=== PATIENT | male | born 1985 | race African-American/Black ===

== ENCOUNTER 2016-08-16 14:42 | Emergency (ER) | payer MEDICARE, MEDICAID ==
[~2016-08-16] VITALS: Ht 188 cm; Wt 115.0 kg
[~2016-08-16 14:42] MED LIST: EXEN2VIA SQ; INSLAN SQ; METF500T4 PO; RIVA10 PO
[2016-08-16] MEDS ORDERED: CACARB500 PO (14:46)
[2016-08-16 14:52] LABS: GLUCOSE,POINT OF CARE 93 MG/DL (70-110)
[2016-08-16] MEDS ORDERED: SODIUM CHLORIDE 0.9% 1,000 ML IV ONE (15:30)
[2016-08-16] MEDS ORDERED: ONDANSETRON HCL 4 MG/2 ML VIAL IVP ONE (15:30)
[2016-08-16 15:51] LABS: BASOPHILS # (AUTO) 0.04 K/uL (0.00-0.20); BASOPHILS % (AUTO) 0.8 % (0.0-2.0); EOSINOPHILS # (AUTO) 0.08 K/uL (0.00-0.70); EOSINOPHILS % (AUTO) 1.52 % (1.0-6.0); HEMATOCRIT 39.2 % (41-53); HEMOGLOBIN 12.8 g/dL (13.5-17.5); LYMPHOCYTES # (AUTO) 2.4 K/uL (1.0-4.8); LYMPHOCYTES % (AUTO) 45.1 % (22.0-44.0); MEAN CORPUSCULAR HEMOGLOBIN 26.3 pg (26.0-34.0); MEAN CORPUSCULAR HGB CONC 32.8 G/dL (31.0-37.0); MEAN CORPUSCULAR VOLUME 80 fL (80-100); MONOCYTES # (AUTO) 0.3 K/uL (0.1-1.0); MONOCYTES % (AUTO) 5.5 % (2.0-9.0); NEUTROPHILS # (AUTO) 2.5 K/uL (1.8-7.7); NEUTROPHILS % (AUTO) 47.1 % (40.0-70.0); PLATELET COUNT (AUTO) 216 K/uL (150-450); RED BLOOD CELL COUNT(AUTO) 4.88 MIL/uL (4.50-5.90); RED CELL DISTRIBUTION WIDTH 14.3 % (11.5-14.5); WHITE BLOOD COUNT (AUTO) 5.2 K/uL (4.5-11.0)
[2016-08-16 15:56] LABS: GLUCOSE,POINT OF CARE 79 MG/DL (70-110)
[2016-08-16 15:59] LABS: ANION GAP 8 mmol/L (8-16); CALCIUM, TOTAL 9.6 mg/dL (8.8-10.5); CARBON DIOXIDE 29 mmol/L (22-29); CHLORIDE 105 mmol/L (98-107); CREATININE 1.18 mg/dL (0.60-1.30); GLOMERULAR FILTR. RATE CALC > 60 mL/min (>60); POTASSIUM 3.6 mmol/L (3.5-5.1); SODIUM SERUM 142 mmol/L (136-145); UREA NITROGEN, BLOOD 12 mg/dL (7-18)
[2016-08-16 16:05] LABS: ALANINE AMINOTRANSFERASE 18 U/L (12-78); ALBUMIN 3.4 g/dL (3.4-5.0); ASPARTATE AMINOTRANSFERASE 11 U/L (15-37); BILIRUBIN,TOTAL 0.5 mg/dL (0.1-1.0); TOTAL PROTEIN, SERUM 7.3 g/dL (6.4-8.2)
[2016-08-16 17:06] LABS: GLUCOSE,POINT OF CARE 108 MG/DL (70-110)
[2016-08-16 17:23] VITALS: BP 132/80
== END 2016-08-16 17:48 | disposition home or self-care (01) ==
LOC: EMS 14:43
DX: S39.012A Strain of muscle, fascia and tendon of lower back, initial encounter (principal); S00.03XA Contusion of scalp, initial encounter; R55 Syncope and collapse; K29.70 Gastritis, unspecified, without bleeding; E11.9 Type 2 diabetes mellitus without complications; Z79.4 Long term (current) use of insulin; Z88.8 Allergy status to other drugs, medicaments and biological substances; V49.50XA Passenger injured in collision with unspecified motor vehicles in traffic accident, initial encounter; Y93.89 Activity, other specified; Y92.89 Other specified places as the place of occurrence of the external cause; Y99.8 Other external cause status
CPT/HCPCS: 36415; 70450; 71010; 72100; 80053; 82962; 83690; 84484; 85025; 93005; 96361; 96374; 99285; J2405; J7030

== ENCOUNTER → 2016-09-03 | Outpatient (CLI) | payer MEDICARE, MEDICAID ==
[~2016-09-03] VITALS: Ht 188 cm; Wt 117.5 kg
[~2016-09-03] MED LIST changes: +CACARB500 PO
[2016-09-03 10:11] VITALS: BP 119/88
[2016-09-03 15:27] LABS: GLUCOSE,POINT OF CARE 112 MG/DL (70-110)
== END | disposition home or self-care (01) ==
LOC: SRCNTR 10:09
PROVIDERS: ATTEND Hospitalist
DX: E11.65 Type 2 diabetes mellitus with hyperglycemia (principal); I10 Essential (primary) hypertension; L02.91 Cutaneous abscess, unspecified; I82.402 Acute embolism and thrombosis of unspecified deep veins of left lower extremity; R26.2 Difficulty in walking, not elsewhere classified; S91.301A Unspecified open wound, right foot, initial encounter; T24.202A Burn of second degree of unspecified site of left lower limb, except ankle and foot, initial encounter
CPT/HCPCS: 82962; G0463

== ENCOUNTER 2016-10-27 01:13 | Emergency (ER) | payer MEDICARE, MEDICAID ==
[~2016-10-27] VITALS: Ht 188 cm; Wt 115.9 kg
[2016-10-27 01:31] LABS: GLUCOSE COMMENT 1 Doctor Notified; GLUCOSE,POINT OF CARE 135 MG/DL (70-110)
[2016-10-27 03:47] LABS: GLUCOSE,POINT OF CARE 132 MG/DL (70-110)
[2016-10-27 05:04] VITALS: BP 162/83
== END 2016-10-27 05:06 | disposition home or self-care (01) ==
LOC: EMS 01:15
DX: J40 Bronchitis, not specified as acute or chronic (principal); E11.9 Type 2 diabetes mellitus without complications; Z79.4 Long term (current) use of insulin; Z88.8 Allergy status to other drugs, medicaments and biological substances
CPT/HCPCS: 82948; 82962; 99283

== ENCOUNTER 2016-10-29 03:16 | Emergency (ER) | payer MEDICARE, MEDICAID ==
[~2016-10-29] VITALS: Ht 188 cm; Wt 115.9 kg
[2016-10-29 03:18] VITALS: BP 133/100
[2016-10-29] MEDS ORDERED: DEXAMETHASONE SOD PHOS 4 MG/ML 5 ML VIAL IM ONE (04:30)
[2016-10-29] MEDS ORDERED: KETOROLAC TROMETHAMINE 60 MG/2 ML VIAL IM ONE (04:45)
== END 2016-10-29 05:40 | disposition home or self-care (01) ==
LOC: EMS 03:18
DX: J02.9 Acute pharyngitis, unspecified (principal); J40 Bronchitis, not specified as acute or chronic; E11.9 Type 2 diabetes mellitus without complications; Z86.718 Personal history of other venous thrombosis and embolism; Z79.01 Long term (current) use of anticoagulants; Z79.4 Long term (current) use of insulin; Z91.048 Other nonmedicinal substance allergy status
CPT/HCPCS: 96372; 99284; J1100; J1885

== ENCOUNTER → 2016-10-29 | Outpatient (CLI) | payer MEDICARE, MEDICAID ==
[~2016-10-29] VITALS: Ht 188 cm; Wt 117.0 kg
[2016-10-29 13:51] VITALS: BP_SYST 91
[2016-10-29 19:39] LABS: GLUCOSE,POINT OF CARE 177 MG/DL (70-110)
== END | disposition home or self-care (01) ==
LOC: SRCNTR 13:30
PROVIDERS: ATTEND Hospitalist
DX: E11.65 Type 2 diabetes mellitus with hyperglycemia (principal); I10 Essential (primary) hypertension; J02.9 Acute pharyngitis, unspecified; Z86.718 Personal history of other venous thrombosis and embolism
CPT/HCPCS: 82962; G0463

== ENCOUNTER → 2016-11-26 | Outpatient (CLI) | payer MEDICARE, MEDICAID ==
[~2016-11-26] VITALS: Ht 188 cm; Wt 122.4 kg
[2016-11-26 09:03] VITALS: BP 151/88
== END | disposition home or self-care (01) ==
LOC: SRCNTR 09:00
PROVIDERS: ATTEND Hospitalist
DX: Z01.818 Encounter for other preprocedural examination (principal); I10 Essential (primary) hypertension; E11.65 Type 2 diabetes mellitus with hyperglycemia; I35.0 Nonrheumatic aortic (valve) stenosis
CPT/HCPCS: 93005; G0463

== ENCOUNTER 2017-03-07 18:45 | Emergency (ER) | payer MEDICARE, MEDICAID ==
[~2017-03-07] VITALS: Ht 188 cm; Wt 118.2 kg
[2017-03-07 19:02] LABS: GLUCOSE,POINT OF CARE 251 MG/DL (70-110)
[2017-03-07] MEDS ORDERED: LIDOCAINE HCL/PF 1% 2 ML VIAL IM ONE (20:00)
[2017-03-07] MEDS ORDERED: BACITRACIN 0.9 GM PACKET OINTMENT TP ONE (20:00)
[2017-03-07] MEDS ORDERED: CefTRIAXone SODIUM 1 GM/VIAL IM ONE (20:00)
[2017-03-07 21:19] VITALS: BP 143/97
== END 2017-03-07 21:21 | disposition home or self-care (01) ==
LOC: EMS 18:46
DX: E11.621 Type 2 diabetes mellitus with foot ulcer (principal); L97.519 Non-pressure chronic ulcer of other part of right foot with unspecified severity; L97.529 Non-pressure chronic ulcer of other part of left foot with unspecified severity; L03.116 Cellulitis of left lower limb; L03.115 Cellulitis of right lower limb; L08.9 Local infection of the skin and subcutaneous tissue, unspecified; I10 Essential (primary) hypertension; F17.210 Nicotine dependence, cigarettes, uncomplicated; Z79.4 Long term (current) use of insulin; Z91.048 Other nonmedicinal substance allergy status
CPT/HCPCS: 82962; 96372; 99283; J0696; J3490

== ENCOUNTER → 2017-04-15 | Outpatient (CLI) | payer MEDICARE, MEDICAID ==
[~2017-04-15] VITALS: Ht 188 cm; Wt 128.0 kg
[~2017-04-15] MED LIST changes: +AMLO-511 PO; -CACARB500 PO; -RIVA10 PO; +RIVA20TA PO; +VANC1IV IV
[2017-04-15 12:38] VITALS: BP 145/89
[2017-04-15 15:40] LABS: GLUCOMETER DEV NAME(LOC) SHC; GLUCOSE,POINT OF CARE 174 MG/DL (70-110)
== END | disposition home or self-care (01) ==
LOC: SRCNTR 11:32
PROVIDERS: ATTEND Hospitalist
DX: E11.65 Type 2 diabetes mellitus with hyperglycemia (principal); E78.5 Hyperlipidemia, unspecified; E11.40 Type 2 diabetes mellitus with diabetic neuropathy, unspecified; I10 Essential (primary) hypertension; L02.215 Cutaneous abscess of perineum; L02.31 Cutaneous abscess of buttock; T24.202A Burn of second degree of unspecified site of left lower limb, except ankle and foot, initial encounter; Z79.01 Long term (current) use of anticoagulants; Z79.4 Long term (current) use of insulin; Z86.718 Personal history of other venous thrombosis and embolism; Z98.890 Other specified postprocedural states
CPT/HCPCS: 82962; G0463

== ENCOUNTER 2017-04-18 19:46 | Inpatient (IN) | payer MEDICARE, MEDICAID ==
[~2017-04-18] VITALS: Ht 188 cm; Wt 130.3 kg
[~2017-04-18 19:46] MED LIST changes: -AMLO-511 PO; -VANC1IV IV
[2017-04-18 20:33] LABS: GLUCOSE,POINT OF CARE 153 MG/DL (70-110)
[2017-04-18] MEDS ORDERED: HYDROmorphone 2 MG/ML SYRINGE IVP ONE (20:45)
[2017-04-18] MEDS ORDERED: 0.9% SODIUM CHLORIDE 10 ML SYRINGE IVP PRN (20:45)
[2017-04-18] MEDS ORDERED: ONDANSETRON HCL 4 MG/2 ML VIAL IVP ONE (20:45)
[2017-04-18 21:13] LABS: BASOPHILS # (AUTO) 0.02 K/uL (0.00-0.20); BASOPHILS % (AUTO) 0.2 % (0.0-2.0); EOSINOPHILS # (AUTO) 0.05 K/uL (0.00-0.70); EOSINOPHILS % (AUTO) 0.55 % (1.0-6.0); HEMOGLOBIN 11.2 g/dL (13.5-17.5); LYMPHOCYTES # (AUTO) 0.9 K/uL (1.0-4.8); LYMPHOCYTES % (AUTO) 9.8 % (22.0-44.0); MEAN CORPUSCULAR HEMOGLOBIN 27.7 pg (26.0-34.0); MEAN CORPUSCULAR VOLUME 82 fL (80-100); MONOCYTES # (AUTO) 0.7 K/uL (0.1-1.0); MONOCYTES % (AUTO) 7.7 % (2.0-9.0); NEUTROPHILS # (AUTO) 7.8 K/uL (1.8-7.7); NEUTROPHILS % (AUTO) 81.7 % (40.0-70.0); PLATELET COUNT (AUTO) 229 K/uL (150-450); RED BLOOD CELL COUNT(AUTO) 4.04 MIL/uL (4.50-5.90); RED CELL DISTRIBUTION WIDTH 12.9 % (11.5-14.5)
[2017-04-18] MEDS ORDERED: SODIUM CHLORIDE 0.9% 1,000 ML IV ONE (21:15)
[2017-04-18 21:25] LABS: CALCIUM, TOTAL 9.1 mg/dL (8.8-10.5); CREATININE 1.72 mg/dL (0.60-1.30); POTASSIUM 4.1 mmol/L (3.5-5.1)
[2017-04-18 21:27] LABS: INR 1.1 (0.9-1.1); PROTHROMBIN TIME 11.4 SEC (9.4-11.6)
[2017-04-18 21:32] LABS: BILIRUBIN,TOTAL 0.6 mg/dL (0.1-1.0); TOTAL PROTEIN, SERUM 8.1 g/dL (6.4-8.2)
[2017-04-18 21:40] LABS: LACTIC ACID 0.7 mmol/L (0.4-2.0)
[2017-04-18] MEDS ORDERED: BISACODYL 10 MG RECTAL RECTAL SUPPOSITORY PR PRN (22:15)
[2017-04-18] MEDS ORDERED: ZOLPIDEM TARTRATE 5 MG TABLET PO PRN (22:15)
[2017-04-18] MEDS ORDERED: DEXTROSE 50%-WATER 25 GM/50 ML SYRINGE IVP PRN (22:15)
[2017-04-18] MEDS ORDERED: ALBUTEROL SULFATE 2.5 MG/0.5 ML NEB SOLUTION NEB PRN (22:15)
[2017-04-18] MEDS ORDERED: OxyCODONE HCL/ACETAMINOPHEN 5-325 MG TABLET PO PRN (22:15)
[2017-04-18] MEDS ORDERED: VANCOMYCIN HCL 1 GM/D5% WATER 200 ML IV ONE (22:30)
[2017-04-18 23:25] VITALS: BP 133/66
[2017-04-18] MEDS ORDERED: SODIUM CHLORIDE 0.9% 500 ML IV ONE (23:34)
[2017-04-19] MEDS ORDERED: VANCOMYCIN HCL 1 GM/D5% WATER 200 ML IV ONE (00:30)
[2017-04-19] MEDS ORDERED: PNEUMOCOCCAL VACCINE POLYVALENT 0.5 ML VIAL [PPSV23] IM ONE (01:15)
[2017-04-19] MEDS ORDERED: INFLUENZA VIRUS VACCINE QVS 2017-18 (3YR+)/PF 60 MCG/0.5 ML SYRINGE IM ONE (01:15)
[2017-04-19 04:30] VITALS: BP 157/86
[2017-04-19] MEDS: INSULIN ASPART 100 UNITS/ML SQ PRN (05:40)
[2017-04-19] MEDS: MORPHINE SULFATE 2 MG/ML SYRINGE IVP PRN ×3 (05:40→16:25)
[2017-04-19] MEDS: SODIUM CHLORIDE 0.9% 1,000 ML IV SCH (05:49)
[2017-04-19 06:12] LABS: CALCIUM, TOTAL 8.3 mg/dL (8.8-10.5); CREATININE 1.64 mg/dL (0.60-1.30)
[2017-04-19 07:13] VITALS: BP 138/70
[2017-04-19] MEDS: PANTOPRAZOLE SODIUM 40 MG DR TABLET PO SCH (09:41)
[2017-04-19] MEDS: HEPARIN SODIUM,PORCINE 5,000 UNITS/ML VIAL SQ SCH ×2 (09:41→19:52)
[2017-04-19] MEDS: DOCUSATE SODIUM 100 MG CAPSULE PO SCH ×2 (09:41→20:00)
[2017-04-19] MEDS: VANCOMYCIN HCL 1.5 GM in DEXTROSE 5%-WATER 250 ML IV SCH ×2 (10:34→19:52)
[2017-04-19 11:15] VITALS: BP 161/96
[2017-04-19 12:48] LABS: GLUCOMETER DEV NAME(LOC) 6N 2D; GLUCOSE,POINT OF CARE 131 MG/DL (70-110)
[2017-04-19 15:56] VITALS: BP 158/81
[2017-04-19 18:18] LABS: GLUCOMETER DEV NAME(LOC) 6N 2D; GLUCOSE,POINT OF CARE 119 MG/DL (70-110)
[2017-04-19 19:39] VITALS: BP 151/73
[2017-04-19] MEDS: ACETAMINOPHEN 325 MG TABLET PO PRN (20:00)
[2017-04-19 20:03] LABS: GLUCOMETER DEV NAME(LOC) 5N 2R; GLUCOSE,POINT OF CARE 141 MG/DL (70-110)
[2017-04-19 23:26] VITALS: BP 152/76
[2017-04-20 00:22] LABS: GLUCOMETER DEV NAME(LOC) 6N 2D; GLUCOSE,POINT OF CARE 128 MG/DL (70-110)
[2017-04-20] MEDS: SODIUM CHLORIDE 0.9% 1,000 ML IV SCH ×3 (00:55→17:24)
[2017-04-20] MEDS: MORPHINE SULFATE 2 MG/ML SYRINGE IVP PRN ×3 (01:13→17:24)
[2017-04-20 04:55] VITALS: BP 149/93
[2017-04-20 05:27] LABS: ANION GAP 7 mmol/L (8-16); CALCIUM, TOTAL 8.2 mg/dL (8.8-10.5); CARBON DIOXIDE 26 mmol/L (22-29); CHLORIDE 105 mmol/L (98-107); CREATININE 1.49 mg/dL (0.60-1.30); GLOMERULAR FILTR. RATE CALC > 60 mL/min (>60); GLUCOSE,RANDOM 113 mg/dL (70-110); POTASSIUM 3.9 mmol/L (3.5-5.1); SODIUM SERUM 138 mmol/L (136-145); UREA NITROGEN, BLOOD 14 mg/dL (7-18)
[2017-04-20 05:57] LABS: GLUCOMETER DEV NAME(LOC) 6N 2D; GLUCOSE,POINT OF CARE 112 MG/DL (70-110)
[2017-04-20 07:04] VITALS: BP 140/82
[2017-04-20] MEDS: VANCOMYCIN HCL 1.5 GM in DEXTROSE 5%-WATER 250 ML IV SCH ×2 (07:48→21:30)
[2017-04-20] MEDS: HEPARIN SODIUM,PORCINE 5,000 UNITS/ML VIAL SQ SCH (07:49)
[2017-04-20] MEDS: PANTOPRAZOLE SODIUM 40 MG DR TABLET PO SCH (07:49)
[2017-04-20] MEDS: DOCUSATE SODIUM 100 MG CAPSULE PO SCH ×2 (07:49→21:32)
[2017-04-20 11:07] LABS: GLUCOMETER DEV NAME(LOC) 6N 2D; GLUCOSE,POINT OF CARE 129 MG/DL (70-110)
[2017-04-20] MEDS: MULTIVITAMINS WITH MINERALS, THERAPEUTIC TABLET PO SCH (11:16)
[2017-04-20 11:28] VITALS: BP 153/82
[2017-04-20] MEDS ORDERED: ONDANSETRON HCL 4 MG/2 ML VIAL IVP ONE (12:00)
[2017-04-20] MEDS ORDERED: PROPOFOL 1% 20 ML VIAL IVP ONE (12:00)
[2017-04-20 16:17] VITALS: BP 155/80
[2017-04-20 18:02] LABS: GLUCOMETER DEV NAME(LOC) PVLAB130; GLUCOSE,POINT OF CARE 96 MG/DL (70-110)
[2017-04-20] MEDS: ACETAMINOPHEN 325 MG TABLET PO PRN (18:40)
[2017-04-20 20:18] VITALS: BP 148/76
[2017-04-20 23:10] VITALS: BP 151/85
[2017-04-21 00:03] LABS: GLUCOMETER DEV NAME(LOC) 6N 2D; GLUCOSE,POINT OF CARE 116 MG/DL (70-110)
[2017-04-21] MEDS: SODIUM CHLORIDE 0.9% 1,000 ML IV SCH ×2 (03:35→17:42)
[2017-04-21 05:56] VITALS: BP 142/78
[2017-04-21 06:08] LABS: BASOPHILS % (AUTO) 0.4 % (0.0-2.0); EOSINOPHILS % (AUTO) 2.3 % (1.0-6.0); HEMATOCRIT 30.6 % (41-53); HEMOGLOBIN 10.2 g/dL (13.5-17.5); LYMPHOCYTES # (AUTO) 0.9 K/uL (1.0-4.8); LYMPHOCYTES % (AUTO) 13.5 % (22.0-44.0); MEAN CORPUSCULAR HEMOGLOBIN 27.3 pg (26.0-34.0); MEAN CORPUSCULAR HGB CONC 33.3 G/dL (31.0-37.0); MEAN CORPUSCULAR VOLUME 82 fL (80-100); MONOCYTES # (AUTO) 0.7 K/uL (0.1-1.0); MONOCYTES % (AUTO) 9.7 % (2.0-9.0); NEUTROPHILS # (AUTO) 5.2 K/uL (1.8-7.7); NEUTROPHILS % (AUTO) 74.1 % (40.0-70.0); PLATELET COUNT (AUTO) 234 K/uL (150-450); RED BLOOD CELL COUNT(AUTO) 3.73 MIL/uL (4.50-5.90); RED CELL DISTRIBUTION WIDTH 12.4 % (11.5-14.5)
[2017-04-21] MEDS ORDERED: RINGERS SOLUTION,LACTATED 1,000 ML IV ONE ×2 (06:30→06:32)
[2017-04-21] MEDS ORDERED: SODIUM CHLORIDE 0.9% 10 ML ONE (06:52)
[2017-04-21] MEDS ORDERED: LIDOCAINE HCL/PF 1% 30 ML VIAL ONE (06:52)
[2017-04-21] MEDS ORDERED: BACITRACIN 50,000 UNITS/VIAL ONE (06:52)
[2017-04-21] MEDS ORDERED: BUPIVACAINE HCL/PF 0.5% 30 ML VIAL ONE (06:52)
[2017-04-21 06:53] LABS: GLUCOMETER DEV NAME(LOC) 6N 2D; GLUCOSE,POINT OF CARE 127 MG/DL (70-110)
[2017-04-21] MEDS ORDERED: SODIUM CL IRRIG SOLN BAG 3,000 ML IRRIG ONE (07:33)
[2017-04-21] MEDS ORDERED: GELATIN SPONGE,ABSORBABLE 100 MM TP ONE (08:02)
[2017-04-21] MEDS ORDERED: HYDROmorphone 2 MG/ML SYRINGE IVP PRN (08:15)
[2017-04-21] MEDS ORDERED: FentaNYL CITRATE-PF 100 MCG/2 ML VIAL IVP PRN (08:15)
[2017-04-21] MEDS ORDERED: MEPERIDINE-PF 25 MG/ML SYRINGE IVP PRN (08:15)
[2017-04-21] MEDS ORDERED: NEOMYCIN/BACITRACIN/POLYMYXIN B OINTMENT PACKET TP ONE (08:28)
[2017-04-21 08:53] LABS: CALCIUM, TOTAL 8.2 mg/dL (8.8-10.5); CARBON DIOXIDE 29 mmol/L (22-29); CREATININE 1.58 mg/dL (0.60-1.30); GLOMERULAR FILTR. RATE CALC > 60 mL/min (>60); GLUCOSE,RANDOM 110 mg/dL (70-110); UREA NITROGEN, BLOOD 13 mg/dL (7-18); VANCOMYCIN,RANDOM 21.9 mcg/mL (25.0-50.0)
[2017-04-21 08:59] LABS: ANION GAP 5 mmol/L (8-16); CHLORIDE 104 mmol/L (98-107); POTASSIUM 3.8 mmol/L (3.5-5.1); SODIUM SERUM 138 mmol/L (136-145)
[2017-04-21] MEDS: DOCUSATE SODIUM 100 MG CAPSULE PO SCH ×2 (09:00→20:57)
[2017-04-21] MEDS: PANTOPRAZOLE SODIUM 40 MG DR TABLET PO SCH (09:00)
[2017-04-21] MEDS: MULTIVITAMINS WITH MINERALS, THERAPEUTIC TABLET PO SCH (09:00)
[2017-04-21 09:47] VITALS: BP 163/88
[2017-04-21] MEDS: VANCOMYCIN HCL 1.5 GM in DEXTROSE 5%-WATER 250 ML IV SCH ×2 (10:08→20:01)
[2017-04-21] MEDS ORDERED: PANTOPRAZOLE SODIUM 40 MG DR TABLET PO ONE (10:45)
[2017-04-21 11:58] VITALS: BP 151/99
[2017-04-21 11:58] LABS: GLUCOMETER DEV NAME(LOC) PVLAB130; GLUCOSE,POINT OF CARE 118 MG/DL (70-110)
[2017-04-21] MEDS ORDERED: KETAMINE HCL 50 MG/ML 10 ML VIAL IVP ONE (12:00)
[2017-04-21] MEDS ORDERED: MIDAZOLAM HCL 2 MG/2 ML VIAL IVP ONE (12:00)
[2017-04-21] MEDS ORDERED: FentaNYL CITRATE-PF 100 MCG/2 ML VIAL IVP ONE (12:00)
[2017-04-21 16:20] VITALS: BP 138/82
[2017-04-21] MEDS ORDERED: OXYGEN THERAPY IH SCH (20:00)
[2017-04-21 20:01] VITALS: BP 154/96
[2017-04-21] MEDS ORDERED: 0.9% SODIUM CHLORIDE 10 ML SYRINGE IVP PRN (20:15)
[2017-04-21] MEDS: INSULIN ASPART 100 UNITS/ML SQ PRN (20:59)
[2017-04-21 21:27] LABS: GLUCOMETER DEV NAME(LOC) PVLAB130; GLUCOSE,POINT OF CARE 141 MG/DL (70-110)
[2017-04-21 23:38] VITALS: BP 150/80
[2017-04-22 01:33] LABS: GLUCOMETER DEV NAME(LOC) 6N 2D; GLUCOSE,POINT OF CARE 103 MG/DL (70-110)
[2017-04-22 05:47] VITALS: BP 144/71
[2017-04-22 06:18] LABS: GLUCOMETER DEV NAME(LOC) PVLAB130; GLUCOSE,POINT OF CARE 126 MG/DL (70-110)
[2017-04-22 06:28] LABS: CALCIUM, TOTAL 8.3 mg/dL (8.8-10.5); CREATININE 1.76 mg/dL (0.60-1.30); POTASSIUM 4.1 mmol/L (3.5-5.1)
[2017-04-22] MEDS: DOCUSATE SODIUM 100 MG CAPSULE PO SCH ×2 (08:13→19:59)
[2017-04-22] MEDS: PANTOPRAZOLE SODIUM 40 MG DR TABLET PO SCH (08:14)
[2017-04-22] MEDS: VANCOMYCIN HCL 1.5 GM in DEXTROSE 5%-WATER 250 ML IV SCH ×2 (09:21→19:58)
[2017-04-22] MEDS: MULTIVITAMINS WITH MINERALS, THERAPEUTIC TABLET PO SCH (09:21)
[2017-04-22 11:12] VITALS: BP 143/77
[2017-04-22] MEDS: PIPERACILLIN/TAZO 3.375 GM/D5W 50 ML IV SCH ×3 (12:10→23:41)
[2017-04-22 12:13] LABS: GLUCOMETER DEV NAME(LOC) PVLAB130; GLUCOSE,POINT OF CARE 119 MG/DL (70-110)
[2017-04-22 19:33] VITALS: BP 159/78
[2017-04-22 22:35] LABS: GLUCOMETER DEV NAME(LOC) PVLAB130; GLUCOSE,POINT OF CARE 126 MG/DL (70-110)
[2017-04-22 22:35] LABS: GLUCOMETER DEV NAME(LOC) PVLAB130; GLUCOSE,POINT OF CARE 113 MG/DL (70-110)
[2017-04-23] MEDS: MORPHINE SULFATE 2 MG/ML SYRINGE IVP PRN (02:03)
[2017-04-23] MEDS: PIPERACILLIN/TAZO 3.375 GM/D5W 50 ML IV SCH ×4 (06:19→23:59)
[2017-04-23] MEDS: ONDANSETRON HCL 4 MG/2 ML VIAL IVP PRN (06:23)
[2017-04-23 06:51] LABS: GLUCOMETER DEV NAME(LOC) 6N 2D; GLUCOSE,POINT OF CARE 102 MG/DL (70-110)
[2017-04-23 07:08] LABS: CALCIUM, TOTAL 8.2 mg/dL (8.8-10.5); CREATININE 2.19 mg/dL (0.60-1.30); POTASSIUM 3.9 mmol/L (3.5-5.1); VANCOMYCIN,RANDOM 24.8 mcg/mL (25.0-50.0)
[2017-04-23] MEDS ORDERED: SODIUM CHLORIDE 0.9% 1,000 ML IV SCH (07:30)
[2017-04-23 07:35] VITALS: BP 156/101
[2017-04-23] MEDS: MULTIVITAMINS WITH MINERALS, THERAPEUTIC TABLET PO SCH (08:46)
[2017-04-23] MEDS: PANTOPRAZOLE SODIUM 40 MG DR TABLET PO SCH (08:46)
[2017-04-23] MEDS: DOCUSATE SODIUM 100 MG CAPSULE PO SCH ×2 (08:46→20:21)
[2017-04-23] MEDS: VANCOMYCIN HCL 1.5 GM in DEXTROSE 5%-WATER 250 ML IV SCH (08:49)
[2017-04-23] MEDS ORDERED: MEPERIDINE-PF 25 MG/ML SYRINGE IVP PRN (09:15)
[2017-04-23] MEDS ORDERED: OXYGEN THERAPY IH SCH (09:15)
[2017-04-23] MEDS ORDERED: FentaNYL CITRATE-PF 100 MCG/2 ML VIAL IVP PRN (09:15)
[2017-04-23] MEDS ORDERED: HYDROmorphone 2 MG/ML SYRINGE IVP PRN (09:15)
[2017-04-23] MEDS ORDERED: PROPOFOL 1000 MG/ISO-OSM 100 ML IV ONE (09:35)
[2017-04-23] MEDS ORDERED: SODIUM CHLORIDE 0.9% 1,000 ML IV ONE ×3 (10:15→11:40)
[2017-04-23] MEDS ORDERED: VANCOMYCIN HCL 500 MG/VIAL ONE (11:10)
[2017-04-23] MEDS ORDERED: LIDOCAINE HCL/PF 1% 30 ML VIAL ONE (11:10)
[2017-04-23] MEDS ORDERED: SODIUM CHLORIDE 0.9% 10 ML ONE (11:10)
[2017-04-23] MEDS ORDERED: BUPIVACAINE HCL/PF 0.5% 30 ML VIAL ONE (11:10)
[2017-04-23] MEDS ORDERED: LIDOCAINE HCL/PF 2% 5 ML VIAL INJ ONE (12:00)
[2017-04-23] MEDS ORDERED: METOCLOPRAMIDE HCL 5 MG/ML 2 ML VIAL IVP ONE (12:00)
[2017-04-23] MEDS ORDERED: PROPOFOL 1% 20 ML VIAL IVP ONE (12:00)
[2017-04-23] MEDS ORDERED: GLYCOPYRROLATE 0.2 MG/ML VIAL IM ONE (12:00)
[2017-04-23] MEDS ORDERED: ONDANSETRON HCL 4 MG/2 ML VIAL IVP ONE (12:00)
[2017-04-23] MEDS ORDERED: SUCCINYLCHOLINE CHLORIDE 20 MG/ML 10 ML VIAL IVP ONE (12:00)
[2017-04-23] MEDS ORDERED: MIDAZOLAM HCL 2 MG/2 ML VIAL IVP ONE (12:00)
[2017-04-23] MEDS ORDERED: KETAMINE HCL 50 MG/ML 10 ML VIAL IVP ONE (12:00)
[2017-04-23] MEDS ORDERED: PIPERACILLIN SODIUM/TAZOBACTAM 3.375 GM/VIAL TP ONE (12:30)
[2017-04-23] MEDS ORDERED: GELATIN SPONGE,ABSORBABLE 50 MM TP ONE ×2 (12:31→12:48)
[2017-04-23] MEDS ORDERED: THROMBIN, BOVINE 20000 UNITS/VIAL POWDER TP ONE (12:49)
[2017-04-23 14:10] VITALS: BP 150/93
[2017-04-23 16:43] VITALS: BP 150/96
[2017-04-23 18:38] LABS: GLUCOMETER DEV NAME(LOC) PVLAB130; GLUCOSE,POINT OF CARE 86 MG/DL (70-110)
[2017-04-23] MEDS: ACETAMINOPHEN 325 MG TABLET PO PRN (21:28)
[2017-04-23 21:39] VITALS: BP 162/93
[2017-04-23 22:48] LABS: GLUCOMETER DEV NAME(LOC) 6N 2D; GLUCOSE,POINT OF CARE 130 MG/DL (70-110)
[2017-04-23 23:01] VITALS: BP 147/66
[2017-04-23] MEDS: AmLODIPine BESYLATE 5 MG TABLET PO SCH (23:03)
[2017-04-24 00:59] LABS: APPEARANCE,URINE CLEAR (CLEAR); BILIRUBIN,URINE NEGATIVE (NEGATIVE); GLUCOSE, URINE (UA) NEGATIVE (NEGATIVE); KETONES,URINE NEGATIVE (NEGATIVE); LEUKOCYTE ESTERASE ,URINE NEGATIVE (NEGATIVE); NITRATE,URINE NEGATIVE (NEGATIVE); OCCULT BLOOD,URINE TRACE (NEGATIVE); PH,URINE 5.5 (5.0-8.0); PROTEIN,URINE SEE CONFIRM (NEGATIVE); UROBILINOGEN,URINE 0.2 mg/dL (<=1.0)
[2017-04-24 01:14] LABS: SULFOSALICYLIC ACID,URINE 2+ (Negative)
[2017-04-24 01:28] LABS: BACTERIA,URINE Few /HPF (None Seen); WBC,URINE 0-2 /HPF (0-5)
[2017-04-24 01:33] LABS: URIC ACID CRYSTALS,URINE Few /LPF (None Seen)
[2017-04-24 04:44] VITALS: BP 163/98
[2017-04-24] MEDS: PIPERACILLIN/TAZO 3.375 GM/D5W 50 ML IV SCH ×3 (05:55→18:43)
[2017-04-24] MEDS: MORPHINE SULFATE 2 MG/ML SYRINGE IVP PRN (06:09)
[2017-04-24 06:32] LABS: GLUCOMETER DEV NAME(LOC) PVLAB130; GLUCOSE,POINT OF CARE 138 MG/DL (70-110)
[2017-04-24 07:30] LABS: BASOPHILS % (AUTO) 0.5 % (0.0-2.0); EOSINOPHILS % (AUTO) 2.1 % (1.0-6.0); HEMATOCRIT 31.9 % (41-53); HEMOGLOBIN 10.5 g/dL (13.5-17.5); LYMPHOCYTES # (AUTO) 1.4 K/uL (1.0-4.8); MEAN CORPUSCULAR VOLUME 82 fL (80-100); MONOCYTES # (AUTO) 0.8 K/uL (0.1-1.0); MONOCYTES % (AUTO) 7.5 % (2.0-9.0); NEUTROPHILS # (AUTO) 8.1 K/uL (1.8-7.7); NEUTROPHILS % (AUTO) 76.9 % (40.0-70.0); PLATELET COUNT (AUTO) 316 K/uL (150-450); RED BLOOD CELL COUNT(AUTO) 3.88 MIL/uL (4.50-5.90); RED CELL DISTRIBUTION WIDTH 13.2 % (11.5-14.5)
[2017-04-24 07:34] VITALS: BP 150/94
[2017-04-24 07:50] LABS: CALCIUM, TOTAL 8.3 mg/dL (8.8-10.5); CREATININE 2.61 mg/dL (0.60-1.30); POTASSIUM 3.9 mmol/L (3.5-5.1); VANCOMYCIN,RANDOM 14.3 mcg/mL (25.0-50.0)
[2017-04-24] MEDS ORDERED: VANCOMYCIN HCL 1.5 GM in DEXTROSE 5%-WATER 250 ML IV SCH (08:00)
[2017-04-24] MEDS: DOCUSATE SODIUM 100 MG CAPSULE PO SCH ×2 (08:37→21:00)
[2017-04-24] MEDS: PANTOPRAZOLE SODIUM 40 MG DR TABLET PO SCH (08:37)
[2017-04-24] MEDS: AmLODIPine BESYLATE 5 MG TABLET PO SCH (08:37)
[2017-04-24] MEDS: MULTIVITAMINS WITH MINERALS, THERAPEUTIC TABLET PO SCH (08:37)
[2017-04-24] MEDS: INSULIN ASPART 100 UNITS/ML SQ PRN ×2 (11:11→18:46)
[2017-04-24 11:34] VITALS: BP 153/82
[2017-04-24] MEDS ORDERED: HEPARIN SODIUM 1000 UNITS/NS 500 ML ONE (16:20)
[2017-04-24 17:37] LABS: GLUCOMETER DEV NAME(LOC) PVLAB130; GLUCOSE,POINT OF CARE 142 MG/DL (70-110)
[2017-04-24 18:57] LABS: GLUCOMETER DEV NAME(LOC) 6N 2D; GLUCOSE,POINT OF CARE 105 MG/DL (70-110)
[2017-04-24 19:35] VITALS: BP 159/98
[2017-04-24 21:08] LABS: GLUCOMETER DEV NAME(LOC) 6N 2D; GLUCOSE,POINT OF CARE 105 MG/DL (70-110)
[2017-04-25 00:07] VITALS: BP 163/91
[2017-04-25] MEDS: PIPERACILLIN/TAZO 3.375 GM/D5W 50 ML IV SCH ×5 (00:07→23:53)
[2017-04-25 04:55] VITALS: BP 162/92
[2017-04-25 05:47] LABS: CALCIUM, TOTAL 8.4 mg/dL (8.8-10.5); CREATININE 2.46 mg/dL (0.60-1.30); POTASSIUM 3.8 mmol/L (3.5-5.1)
[2017-04-25 05:52] LABS: GLUCOMETER DEV NAME(LOC) 6N 2D; GLUCOSE,POINT OF CARE 140 MG/DL (70-110)
[2017-04-25 07:46] VITALS: BP 137/85
[2017-04-25] MEDS ORDERED: VANCOMYCIN HCL 1 GM/D5% WATER 200 ML IV ONE (08:00)
[2017-04-25] MEDS: DOCUSATE SODIUM 100 MG CAPSULE PO SCH ×2 (08:37→20:41)
[2017-04-25] MEDS: MULTIVITAMINS WITH MINERALS, THERAPEUTIC TABLET PO SCH (08:38)
[2017-04-25] MEDS: AmLODIPine BESYLATE 5 MG TABLET PO SCH (08:38)
[2017-04-25] MEDS: PANTOPRAZOLE SODIUM 40 MG DR TABLET PO SCH (08:38)
[2017-04-25] MEDS ORDERED: VANCOMYCIN HCL 1 GM/D5% WATER 200 ML IV PRN (09:00)
[2017-04-25] MEDS: INSULIN ASPART 100 UNITS/ML SQ PRN ×2 (11:19→17:20)
[2017-04-25 11:49] VITALS: BP 134/80
[2017-04-25 17:38] LABS: GLUCOMETER DEV NAME(LOC) PVLAB130; GLUCOSE,POINT OF CARE 114 MG/DL (70-110)
[2017-04-25 17:38] LABS: GLUCOMETER DEV NAME(LOC) PVLAB130; GLUCOSE,POINT OF CARE 127 MG/DL (70-110)
[2017-04-25 19:38] VITALS: BP 147/99
[2017-04-25 22:07] LABS: GLUCOMETER DEV NAME(LOC) 6N 2D; GLUCOSE,POINT OF CARE 97 MG/DL (70-110)
[2017-04-25 23:51] VITALS: BP 148/77
[2017-04-26 04:26] VITALS: BP 152/79
[2017-04-26] MEDS: PIPERACILLIN/TAZO 3.375 GM/D5W 50 ML IV SCH ×2 (06:01→12:03)
[2017-04-26 06:09] LABS: GLUCOMETER DEV NAME(LOC) PVLAB130; GLUCOSE,POINT OF CARE 119 MG/DL (70-110)
[2017-04-26 07:13] LABS: CALCIUM, TOTAL 8.2 mg/dL (8.8-10.5); CREATININE 2.38 mg/dL (0.60-1.30); POTASSIUM 3.8 mmol/L (3.5-5.1); VANCOMYCIN,RANDOM 12.3 mcg/mL (25.0-50.0)
[2017-04-26] MEDS: MULTIVITAMINS WITH MINERALS, THERAPEUTIC TABLET PO SCH ×2 (09:00→09:27)
[2017-04-26] MEDS: PANTOPRAZOLE SODIUM 40 MG DR TABLET PO SCH ×2 (09:00→09:27)
[2017-04-26] MEDS: DOCUSATE SODIUM 100 MG CAPSULE PO SCH ×2 (09:00→09:27)
[2017-04-26] MEDS: ONDANSETRON HCL 4 MG/2 ML VIAL IVP PRN (09:24)
[2017-04-26] MEDS: AmLODIPine BESYLATE 5 MG TABLET PO SCH (09:27)
[2017-04-26 09:35] VITALS: BP 146/93
[2017-04-26 11:15] VITALS: BP 160/77
[2017-04-26 11:42] LABS: GLUCOMETER DEV NAME(LOC) PVLAB130; GLUCOSE,POINT OF CARE 120 MG/DL (70-110)
[2017-04-26 15:59] VITALS: BP 181/100
[2017-04-26] MEDS ORDERED: VANCOMYCIN HCL 1 GM/D5% WATER 200 ML IV ONE (16:00)
[2017-04-26] MEDS ORDERED: VANC1IV IV (17:18)
[2017-04-26] MEDS ORDERED: AMLO-511 PO (17:24)
[2017-04-27] MEDS ORDERED: VANCOMYCIN HCL 1.25 GM in DEXTROSE 5%-WATER 250 ML IV SCH (08:00)
== END 2017-04-26 17:40 | disposition home or self-care (01) | DRG 853 ==
LOC: EMS 19:47 → 6N 22:25
PROVIDERS: ADMIT Internal Medicine; ATTEND Internal Medicine
PROC: 0Y6Y0Z1 Detachment at Left 5th Toe, High, Open Approach (ICD-10-PCS; principal; 2017-04-21 07:48)
PROC: 0QTP0ZZ Resection of Left Metatarsal, Open Approach (ICD-10-PCS; 2017-04-23)
PROC: 0Y6W0Z0 Detachment at Left 4th Toe, Complete, Open Approach (ICD-10-PCS; 2017-04-23)
PROC: 0Y9N0ZZ Drainage of Left Foot, Open Approach (ICD-10-PCS; 2017-04-23)
PROC: 02HV33Z Insertion of Infusion Device into Superior Vena Cava, Percutaneous Approach (ICD-10-PCS; 2017-04-24)
DX: A41.9 Sepsis, unspecified organism (principal); N17.0 Acute kidney failure with tubular necrosis; M86.8X7 Other osteomyelitis, ankle and foot; L02.612 Cutaneous abscess of left foot; E10.69 Type 1 diabetes mellitus with other specified complication; E10.22 Type 1 diabetes mellitus with diabetic chronic kidney disease; E66.01 Morbid (severe) obesity due to excess calories; E10.40 Type 1 diabetes mellitus with diabetic neuropathy, unspecified; E10.621 Type 1 diabetes mellitus with foot ulcer; E10.65 Type 1 diabetes mellitus with hyperglycemia; L97.519 Non-pressure chronic ulcer of other part of right foot with unspecified severity; F17.210 Nicotine dependence, cigarettes, uncomplicated; I12.9 Hypertensive chronic kidney disease with stage 1 through stage 4 chronic kidney disease, or unspecified chronic kidney disease; N18.9 Chronic kidney disease, unspecified; D64.9 Anemia, unspecified; B96.89 Other specified bacterial agents as the cause of diseases classified elsewhere; Z53.29 Procedure and treatment not carried out because of patient's decision for other reasons; Z28.21 Immunization not carried out because of patient refusal; Z91.048 Other nonmedicinal substance allergy status; Z71.6 Tobacco abuse counseling; Z86.718 Personal history of other venous thrombosis and embolism; Z91.19 Patient's noncompliance with other medical treatment and regimen; Z68.36 Body mass index [BMI] 36.0-36.9, adult
CPT/HCPCS: 36245; 36569; 73718; 76937; 82962; 83605; 84145; 85651; 87040; 87070; 87081; 87205; 88304; 88305; 88311; 93005; 93970; 96374; 96375; 99285; G0463; J0330; J0690; J1170; J1644; J2250; J2270; J2405; J2543; J2704; J2765; J3010; J3370; J3490; J7030; J7040; J7060; J7120

== ENCOUNTER → 2017-04-30 | Outpatient (CLI) | payer MEDICARE, MEDICAID ==
[~2017-04-30] MED LIST changes: +AMLO-511 PO; +VANC1IV IV
[2017-04-30 11:32] VITALS: BP 110/90
== END | disposition home or self-care (01) ==
LOC: SRCNTR 09:56
PROVIDERS: ATTEND Hospitalist
DX: E11.65 Type 2 diabetes mellitus with hyperglycemia (principal); I10 Essential (primary) hypertension; E78.5 Hyperlipidemia, unspecified; G89.4 Chronic pain syndrome
CPT/HCPCS: G0463

== ENCOUNTER → 2017-07-08 | Outpatient (CLI) | payer MEDICARE, MEDICAID ==
[2017-07-08 15:05] VITALS: BP 142/90
[2017-07-08 15:53] LABS: GLUCOMETER DEV NAME(LOC) SHC; GLUCOSE,POINT OF CARE 360 MG/DL (70-110)
== END | disposition home or self-care (01) ==
LOC: SRCNTR 15:03
PROVIDERS: ATTEND Hospitalist
DX: N17.0 Acute kidney failure with tubular necrosis (principal); I12.9 Hypertensive chronic kidney disease with stage 1 through stage 4 chronic kidney disease, or unspecified chronic kidney disease; E11.22 Type 2 diabetes mellitus with diabetic chronic kidney disease; N18.9 Chronic kidney disease, unspecified; M86.9 Osteomyelitis, unspecified; Z79.4 Long term (current) use of insulin; Z86.718 Personal history of other venous thrombosis and embolism
CPT/HCPCS: 82962 ×2; G0463

== ENCOUNTER → 2017-08-05 | Outpatient (CLI) | payer MEDICARE, MEDICAID ==
[2017-08-05 12:08] VITALS: BP 154/85
[2017-08-05 14:28] LABS: GLUCOMETER DEV NAME(LOC) SHC; GLUCOSE,POINT OF CARE 271 MG/DL (70-110)
== END | disposition home or self-care (01) ==
LOC: SRCNTR 11:54
PROVIDERS: ATTEND Hospitalist
DX: I12.9 Hypertensive chronic kidney disease with stage 1 through stage 4 chronic kidney disease, or unspecified chronic kidney disease (principal); N18.9 Chronic kidney disease, unspecified; E11.22 Type 2 diabetes mellitus with diabetic chronic kidney disease; R05 Cough; M86.9 Osteomyelitis, unspecified; E11.65 Type 2 diabetes mellitus with hyperglycemia
CPT/HCPCS: 82962 ×2; G0463

== ENCOUNTER → 2017-09-09 | Outpatient (CLI) | payer MEDICARE, MEDICAID ==
[2017-09-09 10:25] VITALS: BP 160/90
[2017-09-09 11:07] LABS: GLUCOMETER DEV NAME(LOC) SHC; GLUCOSE,POINT OF CARE 279 MG/DL (70-110)
== END | disposition home or self-care (01) ==
LOC: SRCNTR 10:02
PROVIDERS: ATTEND Hospitalist
DX: E11.65 Type 2 diabetes mellitus with hyperglycemia (principal); G89.4 Chronic pain syndrome; I82.409 Acute embolism and thrombosis of unspecified deep veins of unspecified lower extremity; I12.9 Hypertensive chronic kidney disease with stage 1 through stage 4 chronic kidney disease, or unspecified chronic kidney disease; E11.22 Type 2 diabetes mellitus with diabetic chronic kidney disease; N18.9 Chronic kidney disease, unspecified; M86.9 Osteomyelitis, unspecified
CPT/HCPCS: 82962; G0463

== ENCOUNTER → 2017-09-14 | Outpatient (CLI) | payer MEDICARE, MEDICAID ==
[~2017-09-14] MED LIST changes: -VANC1IV IV
== END | disposition home or self-care (01) ==
LOC: RADPV 11:13
PROVIDERS: ATTEND Podiatrist Foot & Ankle Surgery
DX: S91.105A Unspecified open wound of left lesser toe(s) without damage to nail, initial encounter (principal); E11.8 Type 2 diabetes mellitus with unspecified complications; X58.XXXA Exposure to other specified factors, initial encounter; Y93.89 Activity, other specified; Y92.89 Other specified places as the place of occurrence of the external cause; Y99.8 Other external cause status

== ENCOUNTER → 2017-10-04 | Outpatient (CLI) | payer MEDICARE, MEDICAID ==
[~2017-10-04] MED LIST changes: +MEDRONATE TC99M/UD<30 MCL ISOTOPE 1 EA INJ INJ ONE; +PERCT10 PO
== END | disposition home or self-care (01) ==
LOC: RADMN 08:46
PROVIDERS: ATTEND Podiatrist Foot & Ankle Surgery
DX: M86.172 Other acute osteomyelitis, left ankle and foot (principal)
CPT/HCPCS: 78315; A9503

== ENCOUNTER 2017-10-08 05:25 | Day surgery (SDC) | payer MEDICARE, MEDICAID ==
[~2017-10-08] VITALS: Ht 188 cm; Wt 125.0 kg
[~2017-10-08 05:25] MED LIST changes: -AMLO-511 PO; -MEDRONATE TC99M/UD<30 MCL ISOTOPE 1 EA INJ INJ ONE; +RINGERS SOLUTION,LACTATED 1,000 ML IV ONE; -RIVA20TA PO
[2017-10-08] MEDS ORDERED: RINGERS SOLUTION,LACTATED 1,000 ML IV ONE (06:00)
[2017-10-08 06:25] LABS: BASOPHILS % (AUTO) 0.9 % (0.0-2.0); EOSINOPHILS % (AUTO) 3.8 % (1.0-6.0); HEMATOCRIT 35.2 % (41-53); HEMOGLOBIN 11.7 g/dL (13.5-17.5); LYMPHOCYTES % (AUTO) 33.4 % (22.0-44.0); MEAN CORPUSCULAR HEMOGLOBIN 26.6 pg (26.0-34.0); MEAN CORPUSCULAR HGB CONC 33.2 G/dL (31.0-37.0); MEAN CORPUSCULAR VOLUME 80 fL (80-100); MONOCYTES # (AUTO) 0.4 K/uL (0.1-1.0); MONOCYTES % (AUTO) 6.8 % (2.0-9.0); NEUTROPHILS # (AUTO) 3.4 K/uL (1.8-7.7); NEUTROPHILS % (AUTO) 55.1 % (40.0-70.0); PLATELET COUNT (AUTO) 242 K/uL (150-450); RED BLOOD CELL COUNT(AUTO) 4.41 MIL/uL (4.50-5.90); RED CELL DISTRIBUTION WIDTH 13.8 % (11.5-14.5)
[2017-10-08 06:33] LABS: CALCIUM, TOTAL 8.7 mg/dL (8.8-10.5); CREATININE 2.02 mg/dL (0.60-1.30); POTASSIUM 4.6 mmol/L (3.5-5.1)
[2017-10-08] MEDS ORDERED: BUPIVACAINE HCL/PF 0.5% 30 ML VIAL ONE (06:36)
[2017-10-08] MEDS ORDERED: LIDOCAINE HCL/PF 1% 30 ML VIAL ONE (06:36)
[2017-10-08] MEDS ORDERED: BACITRACIN 50,000 UNITS/VIAL ONE (06:57)
[2017-10-08] MEDS ORDERED: SODIUM CHLORIDE 0.9% 10 ML ONE (06:57)
[2017-10-08] MEDS ORDERED: GELATIN SPONGE,ABSORBABLE 100 MM TP ONE (07:29)
[2017-10-08] MEDS ORDERED: MIDAZOLAM HCL 2 MG/2 ML VIAL IVP ONE (12:00)
[2017-10-08] MEDS ORDERED: LIDOCAINE HCL/PF 2% 5 ML VIAL INJ ONE (12:00)
[2017-10-08] MEDS ORDERED: FentaNYL CITRATE-PF 100 MCG/2 ML VIAL IVP ONE (12:00)
== END 2017-10-08 09:50 | disposition home or self-care (01) ==
LOC: SURGERY 05:25
PROVIDERS: ATTEND Podiatrist Foot & Ankle Surgery
DX: L97.524 Non-pressure chronic ulcer of other part of left foot with necrosis of bone (principal); E11.69 Type 2 diabetes mellitus with other specified complication; M86.8X7 Other osteomyelitis, ankle and foot; I10 Essential (primary) hypertension; E66.01 Morbid (severe) obesity due to excess calories; F12.90 Cannabis use, unspecified, uncomplicated; Z79.4 Long term (current) use of insulin; Z79.84 Long term (current) use of oral hypoglycemic drugs; Z91.048 Other nonmedicinal substance allergy status; Z98.890 Other specified postprocedural states; Z79.891 Long term (current) use of opiate analgesic; Z79.899 Other long term (current) drug therapy; Z72.89 Other problems related to lifestyle; Z68.35 Body mass index [BMI] 35.0-35.9, adult
CPT/HCPCS: 28825; 36415; 73630; 80048; 85025; 87070; 87077; 87186; 87205; 88305; 88311; J0690; J2250; J3010; J3490 ×4; J7120

== ENCOUNTER 2017-10-11 18:51 | Emergency (ER) | payer MEDICARE, MEDICAID ==
[~2017-10-11] VITALS: Ht 188 cm; Wt 122.7 kg
[~2017-10-11 18:51] MED LIST changes: -RINGERS SOLUTION,LACTATED 1,000 ML IV ONE
[2017-10-11 19:12] LABS: GLUCOSE,POINT OF CARE 189 MG/DL (70-110)
[2017-10-11] MEDS ORDERED: SODIUM CHLORIDE 0.9% 1,000 ML IV ONE ×2 (19:30→21:45)
[2017-10-11] MEDS ORDERED: KETOROLAC TROMETHAMINE 30 MG/ML VIAL IVP ONE (19:30)
[2017-10-11] MEDS ORDERED: ONDANSETRON HCL 4 MG/2 ML VIAL IVP ONE ×2 (19:30→21:45)
[2017-10-11 20:10] LABS: BASOPHILS % (AUTO) 0.2 % (0.0-2.0); EOSINOPHILS % (AUTO) 1.9 % (1.0-6.0); HEMATOCRIT 37.7 % (41-53); HEMOGLOBIN 12.6 g/dL (13.5-17.5); LYMPHOCYTES # (AUTO) 0.4 K/uL (1.0-4.8); LYMPHOCYTES % (AUTO) 5.2 % (22.0-44.0); MEAN CORPUSCULAR HEMOGLOBIN 26.5 pg (26.0-34.0); MEAN CORPUSCULAR HGB CONC 33.4 G/dL (31.0-37.0); MEAN CORPUSCULAR VOLUME 79 fL (80-100); MONOCYTES # (AUTO) 0.4 K/uL (0.1-1.0); MONOCYTES % (AUTO) 4.5 % (2.0-9.0); PLATELET COUNT (AUTO) 242 K/uL (150-450); RED BLOOD CELL COUNT(AUTO) 4.76 MIL/uL (4.50-5.90)
[2017-10-11 20:17] LABS: NEUTROPHILS % (AUTO) 88.2 % (40.0-70.0)
[2017-10-11 20:20] LABS: CALCIUM, TOTAL 9.6 mg/dL (8.8-10.5); CREATININE 2.11 mg/dL (0.60-1.30)
[2017-10-11 20:26] LABS: ALBUMIN 3.6 g/dL (3.4-5.0); BILIRUBIN,TOTAL 0.5 mg/dL (0.1-1.0); TOTAL PROTEIN, SERUM 8.3 g/dL (6.4-8.2)
[2017-10-11] MEDS ORDERED: PANTOPRAZOLE SODIUM 40 MG/VIAL IVP ONE (22:15)
[2017-10-11] MEDS ORDERED: PB/HYOSCY/ATR/SCOP/LIDO/MAALOX 55 ML BOTTLE PO ONE (22:15)
[2017-10-11] MEDS ORDERED: METOCLOPRAMIDE HCL 5 MG/ML 2 ML VIAL IVP ONE (22:15)
[2017-10-11 22:26] VITALS: BP 173/89
== END 2017-10-11 22:56 | disposition left against medical advice (07) ==
LOC: EMS 18:53
DX: K29.70 Gastritis, unspecified, without bleeding (principal); E86.0 Dehydration; D64.9 Anemia, unspecified; F17.210 Nicotine dependence, cigarettes, uncomplicated; Z79.4 Long term (current) use of insulin; Z86.61 Personal history of infections of the central nervous system
CPT/HCPCS: 36415; 80053; 82962; 83690; 83880; 85025; 93005; 96361; 96374; 96375; 96376; 99285; C9113; J1885; J2405; J2765; J7030

== ENCOUNTER → 2017-12-24 | Outpatient (CLI) | payer MEDICARE, MEDICAID ==
[~2017-12-24] MED LIST changes: -METF500T4 PO; +METF500T6 PO
[2017-12-24 14:01] LABS: BASOPHILS % (AUTO) 0.9 % (0.0-2.0); EOSINOPHILS % (AUTO) 2.7 % (1.0-6.0); HEMATOCRIT 36.5 % (41-53); HEMOGLOBIN 12.3 g/dL (13.5-17.5); LYMPHOCYTES # (AUTO) 1.6 K/uL (1.0-4.8); LYMPHOCYTES % (AUTO) 29.2 % (22.0-44.0); MEAN CORPUSCULAR HEMOGLOBIN 27.4 pg (26.0-34.0); MEAN CORPUSCULAR HGB CONC 33.8 G/dL (31.0-37.0); MEAN CORPUSCULAR VOLUME 81 fL (80-100); MONOCYTES # (AUTO) 0.3 K/uL (0.1-1.0); MONOCYTES % (AUTO) 6.3 % (2.0-9.0); NEUTROPHILS # (AUTO) 3.3 K/uL (1.8-7.7); NEUTROPHILS % (AUTO) 60.9 % (40.0-70.0); PLATELET COUNT (AUTO) 225 K/uL (150-450); RED CELL DISTRIBUTION WIDTH 13.6 % (11.5-14.5)
[2017-12-24 14:54] LABS: ERYTHROCYTE SEDIMENTATION RATE 43 MM/HR (0-15)
== END | disposition home or self-care (01) ==
LOC: MSR 13:31
PROVIDERS: ATTEND Podiatrist Foot & Ankle Surgery
DX: M79.672 Pain in left foot (principal)
CPT/HCPCS: 85651

== ENCOUNTER → 2018-03-24 | Outpatient (CLI) | payer MEDICARE, MEDICAID ==
[~2018-03-24] MED LIST changes: +METF-960 PO; -METF500T6 PO
[2018-03-24 09:00] VITALS: BP 212/92
[2018-03-24 09:04] LABS: GLUCOMETER DEV NAME(LOC) SHC; GLUCOSE,POINT OF CARE 136 MG/DL (70-110)
== END | disposition home or self-care (01) ==
LOC: SRCNTR 08:34
PROVIDERS: ATTEND Hospitalist
DX: I12.9 Hypertensive chronic kidney disease with stage 1 through stage 4 chronic kidney disease, or unspecified chronic kidney disease (principal); E11.22 Type 2 diabetes mellitus with diabetic chronic kidney disease; N18.9 Chronic kidney disease, unspecified; E11.65 Type 2 diabetes mellitus with hyperglycemia; M79.89 Other specified soft tissue disorders; E78.5 Hyperlipidemia, unspecified; R05 Cough; Z91.14 Patient's other noncompliance with medication regimen
CPT/HCPCS: 82962 ×2; G0463

== ENCOUNTER 2018-03-27 20:25 | Emergency (ER) | payer MEDICARE, MEDICAID ==
[~2018-03-27] VITALS: Ht 188 cm; Wt 131.4 kg
[2018-03-27 20:44] LABS: GLUCOSE,POINT OF CARE 117 MG/DL (70-110)
[2018-03-27 21:22] LABS: EOSINOPHILS % (AUTO) 3.3 % (1.0-6.0); HEMATOCRIT 29.4 % (41-53); HEMOGLOBIN 9.7 g/dL (13.5-17.5); LYMPHOCYTES # (AUTO) 1.7 K/uL (1.0-4.8); LYMPHOCYTES % (AUTO) 28.7 % (22.0-44.0); MEAN CORPUSCULAR HEMOGLOBIN 26.9 pg (26.0-34.0); MEAN CORPUSCULAR VOLUME 82 fL (80-100); MONOCYTES # (AUTO) 0.5 K/uL (0.1-1.0); NEUTROPHILS # (AUTO) 3.5 K/uL (1.8-7.7); PLATELET COUNT (AUTO) 212 K/uL (150-450); RED CELL DISTRIBUTION WIDTH 14.1 % (11.5-14.5)
[2018-03-27 21:33] LABS: CALCIUM, TOTAL 8.5 mg/dL (8.8-10.5); CREATININE 2.92 mg/dL (0.60-1.30); POTASSIUM 4.4 mmol/L (3.5-5.1)
[2018-03-27 21:34] LABS: INR 0.9 (0.9-1.1); PROTHROMBIN TIME 9.8 SEC (9.4-11.6)
[2018-03-27 21:39] LABS: ALBUMIN 2.4 g/dL (3.4-5.0); BILIRUBIN,TOTAL 0.2 mg/dL (0.1-1.0); TOTAL PROTEIN, SERUM 6.9 g/dL (6.4-8.2)
[2018-03-27 21:56] LABS: LACTIC ACID 0.3 mmol/L (0.4-2.0)
[2018-03-27] MEDS ORDERED: LIDOCAINE/PF 1% 2 ML VIAL IM ONE (23:30)
[2018-03-27] MEDS ORDERED: CefTRIAXone SODIUM 1 GM/VIAL IM ONE (23:30)
[2018-03-27] MEDS ORDERED: RIVAROXABAN 15 MG TABLET PO ONE (23:30)
[2018-03-28] MEDS ORDERED: CefTRIAXone SODIUM 1 GM in DEXTROSE 5%-WATER 10 ML IV ONE ×2
[2018-03-28 01:24] VITALS: BP 148/68
== END 2018-03-28 01:32 | disposition left against medical advice (07) ==
LOC: EMS 20:26
DX: E11.621 Type 2 diabetes mellitus with foot ulcer (principal); L97.529 Non-pressure chronic ulcer of other part of left foot with unspecified severity; N28.9 Disorder of kidney and ureter, unspecified; I82.402 Acute embolism and thrombosis of unspecified deep veins of left lower extremity; F17.210 Nicotine dependence, cigarettes, uncomplicated; Z79.4 Long term (current) use of insulin; Z79.899 Other long term (current) drug therapy; Z91.048 Other nonmedicinal substance allergy status; Z98.890 Other specified postprocedural states
CPT/HCPCS: 36415; 73630; 80053; 82962; 83605; 85025; 85610; 85730; 87040; 93971; 96365; 99285; J0696; J7060; J3490

== ENCOUNTER → 2018-07-07 | Outpatient (CLI) | payer MEDICARE, MEDICAID ==
[~2018-07-07] VITALS: Ht 193 cm; Wt 131.0 kg
[~2018-07-07] MED LIST changes: +FURO40 PO; +INSU100V SQ; +METO5TAB95 PO; +NIFE30TA98 PO; +OXYC-43 PO; -PERCT10 PO; +RIVA20TA PO
[2018-07-07 09:11] VITALS: BP 154/89
== END | disposition home or self-care (01) ==
LOC: SRCNTR 09:08
PROVIDERS: ATTEND Hospitalist
DX: I12.9 Hypertensive chronic kidney disease with stage 1 through stage 4 chronic kidney disease, or unspecified chronic kidney disease (principal); E11.22 Type 2 diabetes mellitus with diabetic chronic kidney disease; N18.9 Chronic kidney disease, unspecified; E11.65 Type 2 diabetes mellitus with hyperglycemia; E78.5 Hyperlipidemia, unspecified; G89.4 Chronic pain syndrome; M86.8X7 Other osteomyelitis, ankle and foot
CPT/HCPCS: G0463

== ENCOUNTER → 2019-08-10 | Outpatient (CLI) | payer MEDICARE, MEDICAID ==
[~2019-08-10] VITALS: Ht 188 cm; Wt 111.0 kg
[~2019-08-10] MED LIST changes: +APIX2.5T PO; +BUME2TAB34 PO; -EXEN2VIA SQ; -FURO40 PO; -METF-960 PO; +METO25 PO; -METO5TAB95 PO; +NIFE-39 PO; -NIFE30TA98 PO; +ONDA8TAB5 PO; -RIVA20TA PO
[2019-08-10 09:28] VITALS: BP 140/96
[2019-08-10 11:56] LABS: GLUCOMETER DEV NAME(LOC) SHC.; GLUCOSE,POINT OF CARE 100 MG/DL (70-110)
== END | disposition home or self-care (01) ==
LOC: SRCNTR 09:25
PROVIDERS: ATTEND Hospitalist
DX: E10.9 Type 1 diabetes mellitus without complications (principal); G03.9 Meningitis, unspecified; G06.0 Intracranial abscess and granuloma; M86.9 Osteomyelitis, unspecified; Z86.718 Personal history of other venous thrombosis and embolism
CPT/HCPCS: 82962; G0463

== ENCOUNTER → 2020-01-04 | Outpatient (CLI) | payer MEDICARE, MEDICAID | END | disposition home or self-care (01) | LOC: SRCNTR 12:24 | PROVIDERS: ATTEND Hospitalist | DX: E11.40 Type 2 diabetes mellitus with diabetic neuropathy, unspecified (principal); E11.9 Type 2 diabetes mellitus without complications; G03.9 Meningitis, unspecified; N18.9 Chronic kidney disease, unspecified; M86.9 Osteomyelitis, unspecified; I73.9 Peripheral vascular disease, unspecified | CPT/HCPCS: Q3014 ==

== ENCOUNTER 2020-01-29 13:16 | Emergency (ER) | payer MEDICARE, MEDICAID ==
[~2020-01-29] VITALS: Ht 188 cm; Wt 112.0 kg
[2020-01-29 13:24] VITALS: BP 163/97
== END 2020-01-29 15:00 | disposition left against medical advice (07) ==
LOC: EMS 13:22
DX: L08.9 Local infection of the skin and subcutaneous tissue, unspecified (principal); E11.9 Type 2 diabetes mellitus without complications; F17.210 Nicotine dependence, cigarettes, uncomplicated; F12.90 Cannabis use, unspecified, uncomplicated; Z88.8 Allergy status to other drugs, medicaments and biological substances; Z79.4 Long term (current) use of insulin

== ENCOUNTER → 2020-08-15 | Outpatient (CLI) | payer MEDICARE, MEDICAID ==
[~2020-08-15] VITALS: Ht 188 cm; Wt 104.0 kg
[~2020-08-15] MED LIST changes: +METO5TAB95 PO; +SEVE800T17 PO
[2020-08-15 12:16] VITALS: BP 178/99
[2020-08-15 15:57] LABS: GLUCOMETER DEV NAME(LOC) SHC.; GLUCOSE,POINT OF CARE 76 MG/DL (70-110)
== END | disposition home or self-care (01) ==
LOC: SRCNTR 11:52
PROVIDERS: ATTEND Hospitalist
DX: E10.21 Type 1 diabetes mellitus with diabetic nephropathy (principal); N18.6 End stage renal disease; I73.9 Peripheral vascular disease, unspecified; Z99.2 Dependence on renal dialysis; Z91.048 Other nonmedicinal substance allergy status; Z79.4 Long term (current) use of insulin; Z79.891 Long term (current) use of opiate analgesic; Z79.899 Other long term (current) drug therapy
CPT/HCPCS: 82962; G0463

== ENCOUNTER → 2020-11-13 | Outpatient (CLI) | payer MEDICARE, MEDICAID ==
[~2020-11-13] MED LIST changes: -INSLAN SQ; -INSU100V SQ
== END | disposition home or self-care (01) ==
LOC: SRCNTR 11:39
PROVIDERS: ATTEND Hospitalist
DX: E10.22 Type 1 diabetes mellitus with diabetic chronic kidney disease (principal); N18.6 End stage renal disease; G03.8 Meningitis due to other specified causes; M86.9 Osteomyelitis, unspecified; I82.409 Acute embolism and thrombosis of unspecified deep veins of unspecified lower extremity; G06.0 Intracranial abscess and granuloma; Z99.2 Dependence on renal dialysis
CPT/HCPCS: Q3014

== ENCOUNTER → 2021-04-10 | Outpatient (CLI) | payer MEDICARE, MEDICAID ==
[~2021-04-10] VITALS: Ht 188 cm; Wt 97.6 kg
[2021-04-10 09:38] VITALS: BP 132/77
== END | disposition home or self-care (01) ==
LOC: SRCNTR 09:08
PROVIDERS: ATTEND Hospitalist
DX: E10.22 Type 1 diabetes mellitus with diabetic chronic kidney disease (principal); N18.6 End stage renal disease; I82.409 Acute embolism and thrombosis of unspecified deep veins of unspecified lower extremity; G03.9 Meningitis, unspecified; G06.0 Intracranial abscess and granuloma; M86.9 Osteomyelitis, unspecified; Z99.2 Dependence on renal dialysis; Z79.899 Other long term (current) drug therapy
CPT/HCPCS: G0463; Z7500

== ENCOUNTER 2021-05-30 06:56 | Emergency (ER) | payer MEDICARE, MEDICAID ==
[~2021-05-30] VITALS: Ht 182.9 cm; Wt 94.0 kg
[2021-05-30 07:02] VITALS: BP 168/89
== END 2021-05-30 08:11 | disposition home or self-care (01) ==
LOC: EMS 06:56
DX: M79.645 Pain in left finger(s) (principal); G47.00 Insomnia, unspecified; N18.6 End stage renal disease; E11.22 Type 2 diabetes mellitus with diabetic chronic kidney disease; I82.409 Acute embolism and thrombosis of unspecified deep veins of unspecified lower extremity; F12.90 Cannabis use, unspecified, uncomplicated; F17.210 Nicotine dependence, cigarettes, uncomplicated; Z99.2 Dependence on renal dialysis; Z79.899 Other long term (current) drug therapy; Z88.8 Allergy status to other drugs, medicaments and biological substances
CPT/HCPCS: 82962; 99283

== ENCOUNTER 2021-06-01 03:28 | Emergency (ER) | payer MEDICARE, MEDICAID ==
[~2021-06-01] VITALS: Ht 188 cm; Wt 95.0 kg
[2021-06-01] MEDS ORDERED: DiphenhydrAMINE HCL 50 MG CAPSULE PO ONE (04:45)
[2021-06-01 05:06] VITALS: BP 158/88
== END 2021-06-01 05:13 | disposition home or self-care (01) ==
LOC: EMS 03:31
DX: G47.00 Insomnia, unspecified (principal); E11.9 Type 2 diabetes mellitus without complications
CPT/HCPCS: 82962; 99282

== ENCOUNTER 2021-06-03 21:21 | Emergency (ER) | payer MEDICARE, MEDICAID ==
[~2021-06-03] VITALS: Ht 182.9 cm; Wt 100.0 kg
[2021-06-03 22:56] LABS: BASOPHILS % (AUTO) 0.6 % (0.0-2.0); EOSINOPHILS % (AUTO) 0.7 % (1.0-6.0); HEMATOCRIT 29.5 % (41-53); HEMOGLOBIN 10.2 g/dL (13.5-17.5); LYMPHOCYTES # (AUTO) 1.7 K/uL (1.0-4.8); LYMPHOCYTES % (AUTO) 28.8 % (22.0-44.0); MEAN CORPUSCULAR HEMOGLOBIN 29.5 pg (26.0-34.0); MEAN CORPUSCULAR HGB CONC 34.6 G/dL (31.0-37.0); MEAN CORPUSCULAR VOLUME 85 fL (80-100); MONOCYTES # (AUTO) 0.7 K/uL (0.1-1.0); MONOCYTES % (AUTO) 11.3 % (2.0-9.0); NEUTROPHILS # (AUTO) 3.5 K/uL (1.8-7.7); NEUTROPHILS % (AUTO) 58.6 % (40.0-70.0); PLATELET COUNT (AUTO) 236 K/uL (150-450); RED BLOOD CELL COUNT(AUTO) 3.45 MIL/uL (4.50-5.90); RED CELL DISTRIBUTION WIDTH 15.5 % (11.5-14.5)
[2021-06-03] MEDS ORDERED: ONDANSETRON HCL 4 MG/2 ML VIAL IVP ONE (23:00)
[2021-06-03] MEDS ORDERED: MORPHINE SULFATE 4 MG/ML SYRINGE IVP ONE (23:00)
[2021-06-03 23:05] LABS: ANION GAP 11 mmol/L (8-16); CALCIUM, TOTAL 9.7 mg/dL (8.8-10.5); CARBON DIOXIDE 29 mmol/L (22-29); CHLORIDE 100 mmol/L (98-107); CREATININE 10.62 mg/dL (0.60-1.30); GLOMERULAR FILTR. RATE CALC 7 mL/min (>60); GLUCOSE,RANDOM 117 mg/dL (70-110); POTASSIUM 3.9 mmol/L (3.5-5.1); SODIUM SERUM 140 mmol/L (136-145); UREA NITROGEN, BLOOD 49 mg/dL (7-18)
[2021-06-03 23:11] LABS: ALANINE AMINOTRANSFERASE 22 U/L (12-78); ALKALINE PHOSPHATASE 46 U/L (46-116); ASPARTATE AMINOTRANSFERASE 12 U/L (15-37); BILIRUBIN,TOTAL 0.5 mg/dL (0.1-1.0); LIPASE 76 U/L (73-393); TOTAL PROTEIN, SERUM 7.4 g/dL (6.4-8.2)
[2021-06-03 23:21] LABS: B-TYPE NATRIURETIC PEPTIDE 140 pg/mL (0-100)
[2021-06-03 23:53] VITALS: BP 134/72
[2021-06-04] MEDS ORDERED: LORazepam 2 MG/ML VIAL IVP ONE (00:30)
== END 2021-06-04 01:00 | disposition home or self-care (01) ==
LOC: EMS 21:30
DX: R07.89 Other chest pain (principal); F41.9 Anxiety disorder, unspecified; M54.50 Low back pain, unspecified; G89.29 Other chronic pain; G47.00 Insomnia, unspecified; E11.22 Type 2 diabetes mellitus with diabetic chronic kidney disease; N18.6 End stage renal disease; Z88.8 Allergy status to other drugs, medicaments and biological substances; Z99.2 Dependence on renal dialysis
CPT/HCPCS: 71045; 80053; 83605; 83690; 83880; 84484; 85025; 93005; 96374; 96375; 99285; G0480; J2060; J2270; J2405; 36415-L1; 36415-TC

== ENCOUNTER → 2021-06-12 | Outpatient (CLI) | payer MEDICARE, MEDICAID | END | disposition home or self-care (01) | LOC: SRCNTR 09:42 | PROVIDERS: ATTEND Hospitalist | DX: E11.9 Type 2 diabetes mellitus without complications (principal); I82.409 Acute embolism and thrombosis of unspecified deep veins of unspecified lower extremity; G03.9 Meningitis, unspecified; G06.0 Intracranial abscess and granuloma; M86.9 Osteomyelitis, unspecified; N18.6 End stage renal disease; Z99.2 Dependence on renal dialysis; Z95.828 Presence of other vascular implants and grafts | CPT/HCPCS: G0463 ==

== ENCOUNTER 2021-06-27 07:23 | Emergency (ER) | payer MEDICARE, MEDICAID ==
[~2021-06-27] VITALS: Ht 188 cm; Wt 97.0 kg
[2021-06-27] MEDS ORDERED: PROMETH/PHENYLEPHRINE/CODEINE 5 ML ORAL.SYG PO ONE (08:15)
[2021-06-27 08:33] LABS: COVID AG,FIA SOURCE NASOPHARYNGEAL
[2021-06-27 09:28] VITALS: BP 152/107
== END 2021-06-27 10:26 | disposition home or self-care (01) ==
LOC: EMS 07:23
DX: R05.9 Cough, unspecified (principal); G47.00 Insomnia, unspecified; F17.210 Nicotine dependence, cigarettes, uncomplicated; I12.9 Hypertensive chronic kidney disease with stage 1 through stage 4 chronic kidney disease, or unspecified chronic kidney disease; E11.22 Type 2 diabetes mellitus with diabetic chronic kidney disease; N18.9 Chronic kidney disease, unspecified; I10 Essential (primary) hypertension; Z20.822 Contact with and (suspected) exposure to COVID-19; Z99.2 Dependence on renal dialysis
CPT/HCPCS: 71045; 87426; 99284; J2370; U0003

== ENCOUNTER 2021-07-02 11:34 | Emergency (ER) | payer MEDICARE, MEDICAID ==
[~2021-07-02] VITALS: Ht 180.3 cm; Wt 90.9 kg
[2021-07-02 11:46] VITALS: BP 127/72
== END 2021-07-02 13:48 | disposition home or self-care (01) ==
LOC: EMS 11:34
DX: F41.9 Anxiety disorder, unspecified (principal); G47.00 Insomnia, unspecified; I10 Essential (primary) hypertension; E11.9 Type 2 diabetes mellitus without complications; F12.90 Cannabis use, unspecified, uncomplicated; Z88.8 Allergy status to other drugs, medicaments and biological substances; Z79.899 Other long term (current) drug therapy
CPT/HCPCS: 99283; Z7502

== ENCOUNTER 2021-08-07 18:12 | Emergency (ER) | payer MEDICARE, MEDICAID ==
[~2021-08-07] VITALS: Ht 182.9 cm; Wt 95.0 kg
[2021-08-07 18:30] VITALS: BP 112/62
[2021-08-07 18:48] LABS: BASOPHILS % (AUTO) 1.5 % (0.0-2.0); EOSINOPHILS % (AUTO) 1.5 % (1.0-6.0); LYMPHOCYTES # (AUTO) 1.1 K/uL (1.0-4.8); LYMPHOCYTES % (AUTO) 13.5 % (22.0-44.0); MEAN CORPUSCULAR HEMOGLOBIN 28.7 pg (26.0-34.0); MEAN CORPUSCULAR HGB CONC 33.3 G/dL (31.0-37.0); MEAN CORPUSCULAR VOLUME 86 fL (80-100); MONOCYTES # (AUTO) 0.8 K/uL (0.1-1.0); NEUTROPHILS # (AUTO) 6.2 K/uL (1.8-7.7); NEUTROPHILS % (AUTO) 73.5 % (40.0-70.0); PLATELET COUNT (AUTO) 232 K/uL (150-450); RED BLOOD CELL COUNT(AUTO) 3.82 MIL/uL (4.50-5.90)
[2021-08-07 18:57] LABS: CALCIUM, TOTAL 8.7 mg/dL (8.8-10.5); CREATININE 14.06 mg/dL (0.60-1.30); POTASSIUM 4.8 mmol/L (3.5-5.1)
[2021-08-07 19:04] LABS: ALBUMIN 3.8 g/dL (3.4-5.0); BILIRUBIN,TOTAL 0.4 mg/dL (0.1-1.0); TOTAL PROTEIN, SERUM 7.6 g/dL (6.4-8.2)
== END 2021-08-07 19:00 | disposition left against medical advice (07) ==
LOC: EMS 18:12
DX: M79.645 Pain in left finger(s) (principal); F41.9 Anxiety disorder, unspecified; I10 Essential (primary) hypertension; E11.9 Type 2 diabetes mellitus without complications; Z79.899 Other long term (current) drug therapy; F12.90 Cannabis use, unspecified, uncomplicated
CPT/HCPCS: 80053; 85025; 99283

== ENCOUNTER 2022-12-14 12:04 | Emergency (ER) | payer MEDICARE, MEDICAID ==
[~2022-12-14] VITALS: Ht 188 cm; Wt 95.5 kg
[~2022-12-14 12:04] MED LIST changes: +NIFE-129 PO; -NIFE-39 PO
[2022-12-14 12:17] VITALS: TEMP 98.2
[2022-12-14] MEDS ORDERED: PANT-31 PO (12:27)
[2022-12-14 12:36] VITALS: BP 151/81; PULSE 87; RESP 18
[2022-12-14 14:08] LABS: BASOPHILS % (AUTO) 0.5 % (0.0-2.0); EOSINOPHILS % (AUTO) 1.3 % (1.0-6.0); HEMATOCRIT 29.7 % (41-53); HEMOGLOBIN 9.6 g/dL (13.5-17.5); LYMPHOCYTES # (AUTO) 0.7 K/uL (1.0-4.8); LYMPHOCYTES % (AUTO) 9.5 % (22.0-44.0); MEAN CORPUSCULAR HGB CONC 32.4 G/dL (31.0-37.0); MEAN CORPUSCULAR VOLUME 90 fL (80-100); MONOCYTES # (AUTO) 0.6 K/uL (0.1-1.0); MONOCYTES % (AUTO) 8.6 % (2.0-9.0); NEUTROPHILS % (AUTO) 80.1 % (40.0-70.0); PLATELET COUNT (AUTO) 235 K/uL (150-450); RED BLOOD CELL COUNT(AUTO) 3.32 MIL/uL (4.50-5.90); RED CELL DISTRIBUTION WIDTH 14.4 % (11.5-14.5)
[2022-12-14 14:22] LABS: CALCIUM, TOTAL 8.2 mg/dL (8.8-10.5); CREATININE 16.5 mg/dL (0.60-1.30); POTASSIUM 5.4 mmol/L (3.5-5.1)
[2022-12-14 14:25] LABS: PROTHROMBIN TIME 10.8 SEC (9.4-11.6)
[2022-12-14 14:28] LABS: ALBUMIN 2.8 g/dL (3.4-5.0); BILIRUBIN,TOTAL 0.4 mg/dL (0.1-1.0); TOTAL PROTEIN, SERUM 7.1 g/dL (6.4-8.2)
[2022-12-14] MEDS ORDERED: BUSP10TA3 PO (14:36)
[2022-12-14] MEDS ORDERED: APIX5TAB PO (14:36)
[2022-12-14] MEDS ORDERED: HYDROCODONE/ACETAMINOPHEN 5-325 MG TABLET PO ONE (14:45)
[2022-12-14] MEDS ORDERED: CLINDAMYCIN 600 MG/D5% WATER 50 ML IV ONE (14:45)
[2022-12-14] MEDS ORDERED: ONDANSETRON HCL 4 MG/2 ML VIAL IVP ONE (15:15)
[2022-12-14] MEDS ORDERED: CLIN-142 PO (15:52)
== END 2022-12-14 16:00 | disposition left against medical advice (07) ==
LOC: EMS 12:09
DX: L03.116 Cellulitis of left lower limb (principal); E11.9 Type 2 diabetes mellitus without complications; I10 Essential (primary) hypertension; G03.9 Meningitis, unspecified; I82.402 Acute embolism and thrombosis of unspecified deep veins of left lower extremity; F12.90 Cannabis use, unspecified, uncomplicated; Z88.8 Allergy status to other drugs, medicaments and biological substances
CPT/HCPCS: 99285; 96365; 73700; 96375; 80053; 83880; 85025; 85610; 85730; 36415; 73590; 93005; J3490; J2405

== ENCOUNTER 2023-07-10 18:51 | Emergency (ER) | payer MEDICARE, MEDICAID ==
[~2023-07-10] VITALS: Ht 188 cm; Wt 107.0 kg
[~2023-07-10 18:51] MED LIST changes: -APIX2.5T PO; +APIX5TAB PO; +BUSP10TA3 PO; +CLIN-142 PO; -METO25 PO; -METO5TAB95 PO; -ONDA8TAB5 PO; +PANT-31 PO; -SEVE800T17 PO; +SEVE800T38 PO
[2023-07-10 19:30] VITALS: TEMP 98.2
[2023-07-10] MEDS ORDERED: LIDOCAINE 1% 10 ML VIAL SQ ONE (22:15)
[2023-07-10] MEDS ORDERED: DOXYCYCLINE HYCLATE 100 MG TABLET PO ONE (22:15)
[2023-07-10] MEDS ORDERED: ACETAMINOPHEN 500 MG TABLET PO ONE (22:15)
[2023-07-10] MEDS ORDERED: BACITRACIN 0.9 GM PACKET OINTMENT TP ONE (22:15)
[2023-07-10] MEDS ORDERED: BACI28.410 TP (23:28)
[2023-07-10] MEDS ORDERED: DOXY-354 PO (23:28)
[2023-07-10] MEDS ORDERED: ONDA-104 PO (23:28)
[2023-07-10] MEDS ORDERED: ONDANSETRON HCL 4 MG TABLET PO ONE (23:30)
[2023-07-10 23:43] VITALS: BP 129/87; PULSE 82; RESP 18
== END 2023-07-10 23:45 | disposition home or self-care (01) ==
LOC: EMS 18:55
DX: M27.2 Inflammatory conditions of jaws (principal); E11.9 Type 2 diabetes mellitus without complications; I10 Essential (primary) hypertension; F12.90 Cannabis use, unspecified, uncomplicated; Z98.890 Other specified postprocedural states
CPT/HCPCS: 99284; 10060; Q0162; J3490

== ENCOUNTER 2023-10-10 12:23 | Emergency (ER) | payer MEDICARE, MEDICAID ==
[~2023-10-10] VITALS: Ht 188 cm; Wt 95.5 kg
[~2023-10-10 12:23] MED LIST changes: +BACI28.410 TP; +DOXY-354 PO; +ONDA-104 PO
[2023-10-10 12:30] VITALS: TEMP 97.5
[2023-10-10 12:46] VITALS: BP 141/105; PULSE 89; RESP 20
== END 2023-10-10 15:09 | disposition home or self-care (01) ==
LOC: EMS 12:23
DX: S56.116A Strain of flexor muscle, fascia and tendon of left ring finger at forearm level, initial encounter (principal); E11.9 Type 2 diabetes mellitus without complications; I10 Essential (primary) hypertension; Z89.029 Acquired absence of unspecified finger(s); X58.XXXA Exposure to other specified factors, initial encounter; Y93.89 Activity, other specified; Y92.89 Other specified places as the place of occurrence of the external cause; Y99.8 Other external cause status
CPT/HCPCS: 99283

== ENCOUNTER 2023-10-24 14:18 | Emergency (ER) | payer MEDICARE, MEDICAID ==
[~2023-10-24] VITALS: Ht 188 cm; Wt 98.0 kg
[2023-10-24 15:12] VITALS: TEMP 98.3
[2023-10-24] MEDS: ONDANSETRON HCL 4 MG TABLET PO ONE (16:15)
[2023-10-24] MEDS: ONDANSETRON HCL 4 MG/2 ML VIAL IM ONE (16:30)
[2023-10-24] MEDS: HYDROmorphone HCL 2 MG/ML SYRINGE IM ONE ×2 (16:30→17:32)
[2023-10-24 17:24] LABS: BASOPHILS % (AUTO) 0.3 % (0.0-2.0); EOSINOPHILS % (AUTO) 0.6 % (1.0-6.0); HEMATOCRIT 39.3 % (41-53); HEMOGLOBIN 12.4 g/dL (13.5-17.5); LYMPHOCYTES # (AUTO) 0.7 K/uL (1.0-4.8); MEAN CORPUSCULAR HEMOGLOBIN 27.5 pg (26.0-34.0); MEAN CORPUSCULAR HGB CONC 31.5 G/dL (31.0-37.0); MEAN CORPUSCULAR VOLUME 87 fL (80-100); MONOCYTES # (AUTO) 0.7 K/uL (0.1-1.0); MONOCYTES % (AUTO) 4.8 % (2.0-9.0); NEUTROPHILS # (AUTO) 12.9 K/uL (1.8-7.7); PLATELET COUNT (AUTO) 241 K/uL (150-450); RED CELL DISTRIBUTION WIDTH 15.5 % (11.5-14.5); WHITE BLOOD COUNT (AUTO) 14.4 K/uL (4.5-11.0)
[2023-10-24 17:30] VITALS: BP 139/89; PULSE 94; RESP 18
[2023-10-24 17:32] LABS: ANION GAP 15 mmol/L (8-16); CALCIUM, TOTAL 8.7 mg/dL (8.8-10.5); CARBON DIOXIDE 26 mmol/L (22-29); CHLORIDE 94 mmol/L (98-107); CREATININE 13.38 mg/dL (0.60-1.30); GLOMERULAR FILTR. RATE CALC 5 mL/min (>60); GLUCOSE,RANDOM 75 mg/dL (70-110); POTASSIUM 4.6 mmol/L (3.5-5.1); SODIUM SERUM 135 mmol/L (136-145); UREA NITROGEN, BLOOD 40 mg/dL (7-18)
[2023-10-24 17:34] LABS: NEUTROPHILS % (AUTO) 89.3 % (40.0-70.0)
[2023-10-24 17:41] LABS: LACTIC ACID 1.7 mmol/L (0.4-2.0)
== END 2023-10-24 18:02 | disposition left against medical advice (07) ==
LOC: EMS 14:18
DX: T81.40XA Infection following a procedure, unspecified, initial encounter (principal); L02.511 Cutaneous abscess of right hand; E11.22 Type 2 diabetes mellitus with diabetic chronic kidney disease; I12.0 Hypertensive chronic kidney disease with stage 5 chronic kidney disease or end stage renal disease; N18.6 End stage renal disease; Z89.029 Acquired absence of unspecified finger(s); Z98.890 Other specified postprocedural states
CPT/HCPCS: 99284; 80048; 83605; 85025; 36415; 73130; 96372; J1170; J2405; Q0162

== ENCOUNTER 2024-01-18 11:48 | Emergency (ER) | payer MEDICARE, MEDICAID ==
[~2024-01-18] VITALS: Ht 188 cm; Wt 98.0 kg
[2024-01-18 11:57] VITALS: TEMP 98.4
[2024-01-18 12:11] LABS: GLUCOMETER DEV NAME(LOC) ER.7; GLUCOSE,POINT OF CARE 87 MG/DL (70-110)
[2024-01-18] MEDS ORDERED: OXYC-38 PO (12:48)
[2024-01-18] MEDS ORDERED: SULF-261 PO (12:48)
[2024-01-18] MEDS ORDERED: CEPH-558 PO (12:48)
[2024-01-18] MEDS ORDERED: APIX2.5T PO (12:51)
[2024-01-18] MEDS ORDERED: GABA-1181 PO (12:51)
[2024-01-18] MEDS: LIDOCAINE/PF 1% 2 ML VIAL IM ONE (12:59)
[2024-01-18] MEDS: CefTRIAXone SODIUM 1 GM/VIAL IM ONE (12:59)
[2024-01-18 13:06] VITALS: BP 112/99; PULSE 94; RESP 18
== END 2024-01-18 13:09 | disposition home or self-care (01) ==
LOC: EMS 11:54
DX: L03.211 Cellulitis of face (principal); E11.9 Type 2 diabetes mellitus without complications; I10 Essential (primary) hypertension; Z91.048 Other nonmedicinal substance allergy status; Z79.899 Other long term (current) drug therapy
CPT/HCPCS: 99283; 82962; 96372; J0696; J3490

== ENCOUNTER 2024-01-21 18:32 | Emergency (ER) | payer MEDICARE, MEDICAID ==
[~2024-01-21] VITALS: Ht 188 cm; Wt 97.7 kg
[~2024-01-21 18:32] MED LIST changes: +APIX2.5T PO; -APIX5TAB PO; +CEPH-558 PO; -CLIN-142 PO; -DOXY-354 PO; +GABA-1181 PO; +OXYC-38 PO; -OXYC-43 PO; +SULF-261 PO
[2024-01-21 19:12] VITALS: BP 151/104; PULSE 93; RESP 14; TEMP 98.1
[2024-01-21] MEDS: LIDOCAINE 1% 10 ML VIAL SQ ONE (20:23)
[2024-01-21] MEDS: LIDOCAINE 1%/EPI 1:200,000/PF 10 ML VIAL SQ ONE (20:35)
== END 2024-01-21 21:05 | disposition home or self-care (01) ==
LOC: EMS 18:32
DX: L02.01 Cutaneous abscess of face (principal); E11.9 Type 2 diabetes mellitus without complications; I10 Essential (primary) hypertension; Z91.048 Other nonmedicinal substance allergy status
CPT/HCPCS: 10060; 99282; J3490 ×2